=== PATIENT | male | born 1960 | race Caucasian/White ===

== ENCOUNTER 2020-11-03 06:27 | Day surgery (SDC) | payer OTHER, SELFPAY ==
[~2020-11-03] VITALS: Ht 177.8 cm; Wt 72.6 kg
[2020-11-03] MEDS ORDERED: fentaNYL citrate 0.05 MG/ML VIAL ONE (08:46)
[2020-11-03] MEDS ORDERED: diphenhydrAMINE 50 MG/ML VIAL ONE (08:46)
[2020-11-03] MEDS ORDERED: MIDAZOLAM 5 MG/5 ML VIAL ONE (08:47)
[2020-11-03] MEDS ORDERED: LIDOCAINE VISCOUS 2% 20 ML UDC ONE (09:02)
[2020-11-03] MEDS ORDERED: MIDAZOLAM 2 MG/2 ML VIAL IVP ONE (09:40)
[2020-11-03] MEDS ORDERED: fentaNYL citrate 0.05 MG/ML VIAL IVP ONE (09:40)
[2020-11-03] MEDS ORDERED: LIDOCAINE VISCOUS 2% 20 ML UDC PO ONE (09:40)
== END 2020-11-03 10:45 | disposition home or self-care (01) ==
LOC: MMU 06:27 → MDS 06:27
PROVIDERS: ATTEND Internal Medicine Gastroenterology
DX: R13.10 Dysphagia, unspecified (principal); K29.70 Gastritis, unspecified, without bleeding; F17.210 Nicotine dependence, cigarettes, uncomplicated; Z20.822 Contact with and (suspected) exposure to COVID-19; Z79.899 Other long term (current) drug therapy
CPT/HCPCS: 43239; J2250; J3010; U0003; J1200